=== PATIENT | male | born 1965 | race Caucasian/White ===

== ENCOUNTER 2024-09-21 22:12 | Emergency (ER) | payer BC, OTHER ==
[2024-09-21] MEDS: Albuterol/Ipratropium 3.0-0.5 MG/3 ML Neb Soln NEB ONE (22:36)
[2024-09-21] MEDS: Albuterol 0.083% 2.5 MG/3 ML Neb Soln NEB ONE (22:39)
[2024-09-21] MEDS: Take Home: Azithromycin 250 MG, 2 Tab Pack PO ONE (23:16)
[2024-09-21] MEDS: Albuterol 6.7 GM Inhaler INH ONE (23:16)
[2024-09-21] MEDS: Dexamethasone 4 MG/ML SDV IM ONE (23:21)
== END 2024-09-21 23:30 | disposition home or self-care (01) ==
LOC: DL.ED 22:12
DX: J45.21 Mild intermittent asthma with (acute) exacerbation (principal); Z91.048 Other nonmedicinal substance allergy status; Z79.899 Other long term (current) drug therapy
CPT/HCPCS: 96372; 99284; A9270; J1100; J7613-GY; J7620-GY